=== PATIENT | female | born 1985 | race Caucasian/White ===

== ENCOUNTER 2019-02-02 13:38 | Emergency (ER) | payer OTHER ==
[~2019-02-02] VITALS: Ht 160 cm; Wt 74.0 kg
[~2019-02-02 13:38] MED LIST: TETR15DR63 BOTH EYES
[2019-02-02 13:41] VITALS: BP 145/90; PULSE 74; RESP 16; Ht 160 cm; Wt 74.0 kg
== END 2019-02-02 14:35 | disposition home or self-care (01) ==
LOC: FTE 13:38
DX: H57.89 Other specified disorders of eye and adnexa (principal); R53.83 Other fatigue
CPT/HCPCS: 93005; Z7502